=== PATIENT | male | born 1990 | race American Indian/Alaskan Native ===

== ENCOUNTER 2018-08-17 15:11 | Emergency (ER) | payer MEDICAID ==
[~2018-08-17] VITALS: Ht 177.8 cm; Wt 105.0 kg
[2018-08-17 15:22] VITALS: BP 134/84
[2018-08-17] MEDS ORDERED: AMOX-422 PO (15:58)
== END 2018-08-17 16:13 | disposition home or self-care (01) ==
LOC: ER 15:12
DX: S81.812A Laceration without foreign body, left lower leg, initial encounter (principal); S81.852A Open bite, left lower leg, initial encounter; W54.0XXA Bitten by dog, initial encounter; Y93.89 Activity, other specified; Y92.89 Other specified places as the place of occurrence of the external cause; Y99.8 Other external cause status
CPT/HCPCS: 99283

== ENCOUNTER 2019-12-09 21:09 | Emergency (ER) | payer MEDICAID ==
[~2019-12-09] VITALS: Ht 180.3 cm; Wt 118.0 kg
[2019-12-09 21:12] VITALS: BP 142/93
[2019-12-09] MEDS ORDERED: PRED20TA PO (21:30)
[2019-12-09] MEDS ORDERED: dexamethasone sod phosphate 10mg/ml inj PO STA (21:30)
== END 2019-12-09 21:48 | disposition home or self-care (01) ==
LOC: ER 21:09
DX: L23.7 Allergic contact dermatitis due to plants, except food (principal); Z88.1 Allergy status to other antibiotic agents; Z88.6 Allergy status to analgesic agent; Z79.899 Other long term (current) drug therapy
CPT/HCPCS: 99283; J1100

== ENCOUNTER 2019-12-11 20:16 | Emergency (ER) | payer MEDICAID ==
[~2019-12-11] VITALS: Ht 180.3 cm; Wt 98.8 kg
[~2019-12-11 20:16] MED LIST: PRED20TA PO
[2019-12-11 20:21] VITALS: BP 127/88
[2019-12-11] MEDS ORDERED: mupirocin 2% ointment 22GM TP STA (21:02)
== END 2019-12-11 21:14 | disposition home or self-care (01) ==
LOC: ER 20:17
DX: L02.413 Cutaneous abscess of right upper limb (principal); Z88.5 Allergy status to narcotic agent; Z88.8 Allergy status to other drugs, medicaments and biological substances
CPT/HCPCS: 10060; 99282

== ENCOUNTER 2020-06-11 02:03 | Emergency (ER) | payer MEDICAID ==
[2020-06-11 02:48] LABS: BASOPHILS # (AUTO) 0.1 X10'3 (0-0.2); BASOPHILS % (AUTO) 0.7 % (0-1); EOSINOPHILS # (AUTO) 0.3 X10'3 (0-0.9); EOSINOPHILS % (AUTO) 2.8 % (0-6); HEMATOCRIT 41.3 % (42.0-52.0); HEMOGLOBIN 14.1 g/dl (14.0-17.9); LYMPHOCYTES # (AUTO) 3.4 X10'3 (1.1-4.8); LYMPHOCYTES % (AUTO) 36.8 % (21-51); MEAN CORPUSCULAR HEMOGLOBIN 30.4 PG (27.0-31.0); MEAN CORPUSCULAR HGB CONC 34.1 g/dL (33.0-36.5); MEAN CORPUSCULAR VOLUME 89.2 FL (78-98); MEAN PLATELET VOLUME 8.9 FL (7.4-10.4); MONOCYTES # (AUTO) 0.8 X10'3 (0-0.9); MONOCYTES % (AUTO) 8.2 % (2-12); NEUTROPHILS # (AUTO) 4.7 X10'3 (1.8-7.7); NEUTROPHILS % (AUTO) 51.5 % (42-75); PLATELET COUNT 233 X10'3 (140-440); RED BLOOD COUNT 4.63 X10'6 (4.70-6.10); RED CELL DISTRIBUTION WIDTH 13.4 % (11.5-14.5); WHITE BLOOD COUNT 9.2 X10'3 (4.5-11.0)
[2020-06-11 03:02] LABS: ALANINE AMINOTRANSFERASE 44 U/L (12-78); ALBUMIN 3.8 G/DL (3.4-5.0); ALBUMIN/GLOBULIN RATIO 1.1 (1.1-1.5); ALKALINE PHOSPHATASE 101 IU/L (46-116); ANION GAP 5 (8-16); ASPARTATE AMINO TRANSFERASE 27 U/L (10-37); BILIRUBIN,TOTAL 0.3 MG/DL (0.1-1.0); BLOOD UREA NITROGEN 22 MG/DL (7-18); BUN/CREATININE RATIO 27.2 (5.4-32.0); CALCIUM 8.6 MG/DL (8.5-10.1); CHLORIDE 107 MMOL/L (99-107); CREATININE 0.81 MG/DL (0.60-1.10); POTASSIUM 3.4 MMOL/L (3.5-5.1); SODIUM 138 MMOL/L (135-145); TOTAL PROTEIN 7.4 G/DL (6.4-8.2); eGFR > 90 ML/MIN
[2020-06-11 03:10] VITALS: BP 144/89
[2020-06-11 03:10] LABS: LIPASE 83 U/L (73-393)
[2020-06-11 03:12] LABS: GLUCOSE 102 MG/DL (70-104)
[2020-06-11] MEDS ORDERED: ibuprofen 200mg tablet PO ONE (04:35)
== END 2020-06-11 04:51 | disposition home or self-care (01) ==
LOC: ER 02:04
DX: R07.89 Other chest pain (principal); R20.0 Anesthesia of skin; Z86.69 Personal history of other diseases of the nervous system and sense organs; Z88.8 Allergy status to other drugs, medicaments and biological substances; Z88.6 Allergy status to analgesic agent
CPT/HCPCS: 36415; 71045; 80053; 83690; 83880; 84484; 85025; 93005; 99285